=== PATIENT | female | born 1985 | race Two or more races ===

== ENCOUNTER 2018-03-06 19:34 | Emergency (ER) | payer MEDICARE, MEDICAID ==
[2018-03-06] MEDS ORDERED: Ondansetron 4 MG Tab.DIS PO ONE (20:13)
[2018-03-06] MEDS ORDERED: Lidocaine 2% Viscous Solution 15 ML Cup ONE (20:44)
[2018-03-06] MEDS ORDERED: Aluminum Hydroxide/Magnesium Hydroxide Susp 30 ML Cup ONE (20:44)
[2018-03-06] MEDS ORDERED: Lidocaine 2% Viscous Solution 15 ML Cup PO ONE (20:50)
[2018-03-06] MEDS ORDERED: Aluminum Hydroxide/Magnesium Hydroxide Susp 30 ML Cup PO ONE (20:50)
--- NOTE | 2018-03-06 21:15 | EDM.PDOC ---
ED HPI GENERAL MEDICAL PROBLEM - General Chief Complaint: Abdominal Pain Stated Complaint: STOMACH PAIN Time Seen by Provider: 03/06/18 20:10 Source of Information: Reports: Patient, Family History Limitations: Reports: No Limitations - History of Present Illness INITIAL COMMENTS - FREE TEXT/NARRATIVE: Terrie reports vague upper abdominal discomfort last week, without escalation of sxs. At 2 pm today, she developed burning epigastric pain, nausea, and had 1 emesis of gastric fluid, followed later by a diarrheal stool. Epigastric burning has persisted inspite of PeptoBismol. There is no know exposure. She has a usual breakfast of coffee with a pastry this am. There is no recent hx of travel. abd Pain Score (Numeric/FACES): 9 - Related Data Allergies Allergy/AdvReac Type Severity Reaction Status Date / Time No Known Allergies Allergy Verified 03/06/18 19:53 Home Meds: Home Meds NK [No Known Home Meds] 03/06/18 [History] Past Medical History - Past Health History Medical/Surgical History: Denies Medical/Surgical History [employer] History: Reports: Social & Family History - Family History Family Medical History: Noncontributory - Tobacco Use Smoking Status *Q: Never Smoker - Caffeine Use Caffeine Use: Reports: Coffee - Recreational Drug Use Recreational Drug Use: No ED ROS GENERAL - Review of Systems Review Of Systems: See Below Constitutional: Reports: Malaise, Decreased Appetite HEENT: Reports: No Symptoms Respiratory: Reports: No Symptoms Cardiovascular: Reports: No Symptoms Endocrine: Reports: No Symptoms GI/Abdominal: Reports: Abdominal Pain, Diarrhea, Decreased Appetite, Nausea, Vomiting : Reports: No Symptoms Musculoskeletal: Reports: No Symptoms Skin: Reports: No Symptoms Neurological: Reports: No Symptoms Psychiatric: Reports: No Symptoms Hematologic/Lymphatic: Reports: No Symptoms Immunologic: Reports: No Symptoms ED EXAM, GI/ABD - Physical Exam Exam: See Below Exam Limited By: No Limitations General Appearance: Alert, WD/WN, Mild Distress Eyes: Bilateral: Normal Appearance, EOMI Ears: Normal External Exam Nose: Normal Inspection Throat/Mouth: Normal Inspection, Normal Lips, Normal Teeth, Normal Gums, Normal Oropharynx, Normal Voice Head: Normocephalic Neck: Normal Inspection, Supple, Non-Tender, Full Range of Motion Respiratory/Chest: Lungs Clear, Normal Breath Sounds, Chest Non-Tender Cardiovascular: Normal Peripheral Pulses, Regular Rate, Rhythm, No Murmur GI/Abdominal Exam: Normal Bowel Sounds, Soft, No Organomegaly, No Distention, No Mass, Tender (epigastrium) (Female) Exam: Deferred Rectal (Female) Exam: Deferred Back Exam: Normal Inspection Extremities: Normal Inspection, Normal Range of Motion Neurological: Alert, Oriented, CN II-XII Intact, Normal Cognition, Normal Gait, No Motor/Sensory Deficits Psychiatric: Normal Affect, Normal Mood Skin Exam: Warm, Dry, Intact, Normal Color Lymphatic: No Adenopathy Course - Vital Signs Text/Narrative:: Following assessment at [facility] ED, I administered Zofran 4 mg SL and GI Cocktail with improvement in digestive sxs within 30 minutes. Screening labs were baseline, with mild elevation of AST and ALT. A gastroenteritis is suspected. Last Recorded V/S: Last Vital Signs Temp 36.8 C 03/06/18 19:40 Pulse 115 H 03/06/18 19:40 Resp BP 116/54 L 03/06/18 19:40 Pulse Ox 99 03/06/18 19:40 - Orders/Labs/Meds Orders: Active Orders 24 hr Category Date Time Status UA W/MICROSCOPIC [URIN] Stat Lab 03/06/18 20:13 Ordered Labs: Laboratory Tests 03/06/18 03/06/18 03/06/18 Range/Units 20:13 20:20 20:20 WBC 7.6 (4.5-12.0) X10-3/uL RBC 4.46 (3.23-5.20) x10(6)uL Hgb 13.7 D (11.5-15.5) g/dL Hct 40.1 (30.0-51.3) % MCV 89.9 (80-96) fL MCH 30.7 (27.7-33.6) pg MCHC 34.1 (32.2-35.4) g/dL RDW 12.0 (11.5-15.5) % Plt Count 166 (125-369) X10(3)uL MPV 9.1 (7.4-10.4) fL Neut % (Auto) 83.3 H (46-82) % Lymph % (Auto) 9.9 L (13-37) % Dubois % (Auto) 5.0 (4-12) % Eos % (Auto) 1 (1.0-5.0) % Baso % (Auto) 1 (0-2) % Neut # (Auto) 6.4 (1.6-8.3) # Lymph # (Auto) 0.7 (0.6-5.0) # Dubois # (Auto) 0.4 (0.0-1.3) # Eos # (Auto) 0.1 (0.0-0.8) # Baso # (Auto) 0.0 (0.0-0.2) # Sodium 142 (135-145) mmol/L Potassium 3.9 (3.5-5.3) mmol/L Chloride 106 (100-110) mmol/L Carbon Dioxide 25 (21-32) mmol/L BUN 17 (7-18) mg/dL Creatinine 0.5 L (0.55-1.02) mg/dL Est Cr Clr Drug Dosing 132.38 mL/min Estimated GFR (MDRD) > 60 (>60) BUN/Creatinine Ratio 34.0 H (9-20) Glucose 102 (80-116) mg/dL Calcium 9.1 (8.6-10.2) mg/dL Total Bilirubin 0.6 (0.1-1.3) mg/dL AST 37 H (5-25) IU/L ALT 84 H (12-36) U/L Alkaline Phosphatase 91 (56-112) IU/L Total Protein 7.1 (6.0-8.0) g/dL Albumin 3.8 (3.5-5.2) g/dL Globulin 3.3 g/dL Albumin/Globulin Ratio 1.2 Urine Color Yellow (YELLOW) Urine Appearance Clear (CLEAR) Urine pH 5.0 (5.0-6.5) Ur Specific Devers 1.030 H (1.010-1.025) Urine Protein Negative (NEGATIVE) mg/dL Urine Glucose (UA) Normal (NEGATIVE) mg/dL Urine Ketones Negative (NEGATIVE) mg/dL Urine Occult Blood Negative (NEGATIVE) Urine Nitrite Negative (NEGATIVE) Urine Bilirubin Small H (NEGATIVE) Urine Urobilinogen Normal (NEGATIVE) mg/dL Ur Leukocyte Esterase Negative (NEGATIVE) Urine RBC 0-5 (0) Urine WBC 0-5 (0) Ur Squamous Epith Cells Moderate H (NS,R,O) Urine Bacteria Moderate H (NS) Urine Mucus Moderate H (NS) Meds: Medications Discontinued Medications Generic Name Dose Route Start Last Admin Trade Name Chai PRN Reason Stop Dose Admin Al Hydroxide/Mg Hydroxide Confirm 03/06/18 20:44 03/06/18 20:51 Mag-Al Susp Administered 03/06/18 20:45 30 ml Dose Administration 30 ml .ROUTE .STK-MED ONE Lidocaine HCl Confirm 03/06/18 20:44 03/06/18 20:51 Xylocaine 2% Viscous Administered 03/06/18 20:45 15 ml Dose Administration 15 ml .ROUTE .STK-MED ONE Ondansetron HCl 4 mg 03/06/18 20:13 03/06/18 20:19 Zofran Odt PO 03/06/18 20:14 4 mg ONETIME ONE Administration Departure - Departure Time of Disposition: 21:16 Disposition: Home, Self-Care 01 Condition: Fair Clinical Impression: Gastroenteritis - Discharge Information Instructions: Wound Dehiscence, [id number] Referrals: PCP,None [Primary Care Provider] - Forms: ED Department Discharge Additional Instructions: keep the dressing clean and dry see your surgeon tomorrow - Problem List & Annotations (1) Gastroenteritis SNOMED Code(s): 98333495 Code(s): K52.9 - NONINFECTIVE GASTROENTERITIS AND COLITIS, UNSPECIFIED Status: Acute Current Visit: Yes Annotation/Comment:: I suggested Prilosec OTC 20 mg q 12 hrs until improved, hydration, and she was given a note for work tonight. - Problem List Review Problem List Initiated/Reviewed/Updated: Yes - My Orders Last 24 Hours: My Active Orders 03/06/18 20:13 UA W/MICROSCOPIC [URIN] Stat - Assessment/Plan Last 24 Hours: My Active Orders 03/06/18 20:13 UA W/MICROSCOPIC [URIN] Stat Plan: Follow up with PCP if sxs persist.
[2018-03-06 21:21] VITALS: BP 113/31
== END 2018-03-06 21:26 | disposition home or self-care (01) ==
LOC: FB.ED 19:34
DX: K52.9 Noninfective gastroenteritis and colitis, unspecified (principal)
CPT/HCPCS: 36415; 80053; 81001; 85025; 99284; A9270

== ENCOUNTER 2021-09-13 03:44 | Emergency (ER) | payer MEDICAID, MEDICARE ==
[2021-09-13] MEDS ORDERED: LORazepam 2 MG/ML SDV IM ONE (04:42)
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
[2021-09-13 23:08] VITALS: BP 108/56; PULSE 137
== END 2021-09-13 06:20 | disposition home or self-care (01) ==
LOC: FB.ED 03:44
DX: T76.21XA Adult sexual abuse, suspected, initial encounter (principal); F41.9 Anxiety disorder, unspecified; F17.200 Nicotine dependence, unspecified, uncomplicated
CPT/HCPCS: 96372; 99284; J2060